=== PATIENT | male | born 1960 | race Caucasian/White ===

== ENCOUNTER 2022-09-10 19:27 | Emergency (ER) | payer MEDICAID ==
[~2022-09-10] VITALS: Ht 165.1 cm; Wt 87.5 kg
[2022-09-10] MEDS ORDERED: KETOROLAC TROMETHAMINE INJ 60 MG/2 ML VIAL IM ONE (20:00)
--- NOTE | 2022-09-10 20:00 | NUR ---
SEEN BY DR PAULINO AT BEDSIDE.
[2022-09-10] MEDS ORDERED: KETOROLAC TROMETHAMINE INJ 30 MG/ML VIAL ONE (20:05)
--- NOTE | 2022-09-10 20:41 | NUR ---
US TECH AT PT'S BEDSIDE
--- NOTE | 2022-09-10 21:03 | NUR ---
UNDERWEAR CUTTER AT PT'S BEDSIDE
[2022-09-10] MEDS ORDERED: IBUP-1955 PO (22:17)
[2022-09-10] MEDS ORDERED: LIDOCAINE 2% 20 ML MDV ONE (22:28)
[2022-09-10] MEDS ORDERED: LIDOCAINE 2% 20 ML MDV TP ONE (22:30)
--- NOTE | 2022-09-10 23:48 | NUR ---
Patient discharged to home in stable condition. Written and verbal after care instructions given. Patient verbalizes understanding of instruction.
[2022-09-10 23:49] VITALS: BP 140/82
== END 2022-09-10 23:49 | disposition home or self-care (01) ==
LOC: ER 19:36
DX: M17.12 Unilateral primary osteoarthritis, left knee (principal); M25.462 Effusion, left knee; Z79.899 Other long term (current) drug therapy
CPT/HCPCS: 99285; 20610; 96372; 73564 ×2; 93971 ×2; J1885; J3490